=== PATIENT | female | born 1995 | race Caucasian/White ===

== ENCOUNTER 2018-11-01 19:30 | Emergency (ER) | payer OTHER ==
[2018-11-01] MEDS ORDERED: Albuterol/Ipratropium 3.0-0.5 MG/3 ML Neb Soln NEB ONE (19:55)
--- NOTE | 2018-11-01 20:01 | EDM.PDOC ---
ED HPI GENERAL MEDICAL PROBLEM - General Chief Complaint: Chest Pain Stated Complaint: SHORTNESS OF BREATH Time Seen by Provider: 11/01/18 19:52 Source of Information: Reports: Patient History Limitations: Reports: No Limitations - History of Present Illness INITIAL COMMENTS - FREE TEXT/NARRATIVE: Patient is a 23-year-old female who presents to emergency department this evening with a complaint of shortness of breath and chest pain. Patient states that early this morning she had some shortness of breath and as the day progressed, she developed chest pain. Chest pain described as constant, on right side of chest, and pressure. Patient states she had similar symptoms with anxiety and asthma in past. Patient denies any early cardiac family history. Patient denies fever, nausea, vomiting, diarrhea, abdominal pain, lower extremity edema, history of blood clots, or any trauma. Onset: Today Duration: Hour(s): Location: Reports: Chest Quality: Reports: Pressure Severity: Mild Improves with: Reports: None Worsens with: Reports: Breathing Context: Denies: Activity, Exercise, Lifting, Sick Contact, Trauma Associated Symptoms: Reports: No Other Symptoms, Shortness of Breath. Denies: Cough, cough w sputum, Fever/Chills - Related Data Allergies Allergy/AdvReac Type Severity Reaction Status Date / Time Penicillins Allergy Rash Verified 03/10/15 20:53 Home Meds: Home Meds Ibuprofen 800 mg PO DAILY PRN 05/01/14 [History] Citalopram [Citalopram HBr] 20 mg PO DAILY 11/01/18 [History] Glycopyrrolate [Robinul] 1 mg PO DAILY 11/01/18 [History] Norgestimate-Ethinyl Estradiol [[place] 28 Tablet] 1 tab PO DAILY 11/01/18 [ History] Oseltamivir [Tamiflu] 75 mg PO DAILY 11/01/18 [History] ED ROS GENERAL - Review of Systems Review Of Systems: ROS reveals no pertinent complaints other than HPI. Constitutional: Reports: No Symptoms HEENT: Reports: No Symptoms Respiratory: Reports: Shortness of Breath Cardiovascular: Reports: Chest Pain Endocrine: Reports: No Symptoms GI/Abdominal: Reports: No Symptoms : Reports: No Symptoms Musculoskeletal: Reports: No Symptoms Skin: Reports: No Symptoms Neurological: Reports: No Symptoms Psychiatric: Reports: No Symptoms Hematologic/Lymphatic: Reports: No Symptoms Immunologic: Reports: No Symptoms ED EXAM, GENERAL - Physical Exam Exam: See Below Exam Limited By: No Limitations General Appearance: Alert, WD/WN, Anxious Nose: Normal Inspection, Normal Mucosa, No Blood Throat/Mouth: Normal Inspection, Normal Oropharynx, No Airway Compromise Head: Atraumatic, Normocephalic Neck: Normal Inspection, Supple, Non-Tender, Full Range of Motion Respiratory/Chest: No Respiratory Distress, Lungs Clear, Normal Breath Sounds, No Accessory Muscle Use Cardiovascular: Normal Peripheral Pulses, Regular Rate, Rhythm, No Murmur, No Rub GI/Abdominal: Normal Bowel Sounds, Soft, Non-Tender, No Organomegaly, No Distention, No Abnormal Bruit, No Mass Back Exam: Normal Inspection. No: CVA Tenderness (L), CVA Tenderness (R) Extremities: Normal Inspection, Non-Tender, No Pedal Edema Neurological: Alert, Oriented, Normal Cognition Psychiatric: Normal Affect, Anxious Skin Exam: Warm, Dry, Intact, Normal Color, No Rash Lymphatic: No Adenopathy EKG INTERPRETATION EKG Date: 11/01/18 Time: 20:10 Rhythm: NSR Rate (Beats/Min): 72 [place]: Normal P-Wave: Present QRS: Normal ST-T: Normal QT: Normal Comparison: NA - No Prior EKG Course - Vital Signs Last Recorded V/S: Last Vital Signs Temp 97 F 11/01/18 20:47 Pulse 88 11/01/18 20:47 Resp 18 11/01/18 20:47 BP 114/64 11/01/18 20:47 Pulse Ox 94 L 11/01/18 20:47 - Orders/Labs/Meds Orders: Active Orders 24 hr Category Date Time Status EKG Documentation Completion [RC] ASDIRECTED Care 11/01/18 19:54 Ordered RT Aerosol Therapy [RC] ASDIRECTED Care 11/01/18 19:55 Ordered EKG 12 Lead [EK] Routine Ther 11/01/18 19:53 Ordered Labs: Laboratory Tests 11/01/18 11/01/18 11/01/18 Range/Units 20:11 20:25 20:25 WBC 8.35 (5.00-10.00) 10^3/uL RBC 4.47 (3.80-5.50) 10^6/uL Hgb 13.9 (12.0-16.0) g/dL Hct 40.1 (37.0-47.0) % MCV 89.7 (82.0-92.0) fL MCH 31.1 H (27.0-31.0) pg MCHC 34.7 (32.0-36.0) g/dL RDW 11.7 (11.5-14.5) % Plt Count 224 (150-400) 10^3/uL MPV 10.4 (7.4-10.4) fL Immature Gran % (Auto) 0.0 (0.0-5.0) % Neut % (Auto) 55.8 (50.0-70.0) % Lymph % (Auto) 37.4 (20.0-40.0) % [place] % (Auto) 5.6 (2.0-8.0) % Eos % (Auto) 0.8 L (1.0-3.0) % Baso % (Auto) 0.4 (0.0-1.0) % Immature Gran # (Auto) 0.00 (0.00-0.50) 10^3/uL Neut # (Auto) 4.66 (2.50-7.00) 10^3/uL Lymph # (Auto) 3.12 (1.00-4.00) 10^3/uL [place] # (Auto) 0.47 (0.10-0.80) 10^3/uL Eos # (Auto) 0.07 L (0.10-0.30) 10^3/uL Baso # (Auto) 0.03 (0.00-0.10) 10^3/uL D-Dimer, Quantitative 129 (<400) ng/mL Sodium (136-145) mmol/L Potassium (3.3-5.3) mmol/L Chloride (98-115) mmol/L Carbon Dioxide (21.0-32.0) mmol/L Anion Gap (5-15) mmol/L BUN (6-25) mg/dL Creatinine (0.51-1.17) mg/dL Est Cr Clr Drug Dosing Estimated GFR (MDRD) mL/min Glucose (75 - 99) mg/dL Calcium (8.7-10.3) mg/dL Total Bilirubin (0.2-1.0) mg/dL AST (15-37) U/L ALT (12-78) U/L Alkaline Phosphatase (46-116) IU/L Total Protein (6.4-8.2) g/dL Albumin (3.00-4.80) g/dL Urine HCG, Qual Negative (NEGATIVE) 11/01/18 Range/Units 20:25 WBC (5.00-10.00) 10^3/uL RBC (3.80-5.50) 10^6/uL Hgb (12.0-16.0) g/dL Hct (37.0-47.0) % MCV (82.0-92.0) fL MCH (27.0-31.0) pg MCHC (32.0-36.0) g/dL RDW (11.5-14.5) % Plt Count (150-400) 10^3/uL MPV (7.4-10.4) fL Immature Gran % (Auto) (0.0-5.0) % Neut % (Auto) (50.0-70.0) % Lymph % (Auto) (20.0-40.0) % [place] % (Auto) (2.0-8.0) % Eos % (Auto) (1.0-3.0) % Baso % (Auto) (0.0-1.0) % Immature Gran # (Auto) (0.00-0.50) 10^3/uL Neut # (Auto) (2.50-7.00) 10^3/uL Lymph # (Auto) (1.00-4.00) 10^3/uL [place] # (Auto) (0.10-0.80) 10^3/uL Eos # (Auto) (0.10-0.30) 10^3/uL Baso # (Auto) (0.00-0.10) 10^3/uL D-Dimer, Quantitative (<400) ng/mL Sodium 154 H (136-145) mmol/L Potassium 4.0 (3.3-5.3) mmol/L Chloride 101 (98-115) mmol/L Carbon Dioxide 25.9 (21.0-32.0) mmol/L Anion Gap 31.1 H (5-15) mmol/L BUN 10 (6-25) mg/dL Creatinine 0.84 (0.51-1.17) mg/dL Est Cr Clr Drug Dosing TNP Estimated GFR (MDRD) > 60 mL/min Glucose 121 H (75 - 99) mg/dL Calcium 8.8 (8.7-10.3) mg/dL Total Bilirubin 0.5 (0.2-1.0) mg/dL AST 13 L (15-37) U/L ALT 18 (12-78) U/L Alkaline Phosphatase 64 (46-116) IU/L Total Protein 7.0 (6.4-8.2) g/dL Albumin 3.76 (3.00-4.80) g/dL Urine HCG, Qual (NEGATIVE) Meds: Medications Discontinued Medications Generic Name Dose Route Start Last Admin Trade Name Freq PRN Reason Stop Dose Admin Albuterol/Ipratropium 3 ml 11/01/18 19:55 11/01/18 20:13 Duoneb 3.0-0.5 Mg/3 Ml NEB 11/01/18 19:56 3 ml ONETIME ONE Administration Lorazepam 0.5 mg 11/01/18 20:25 11/01/18 20:31 Ativan PO 11/01/18 20:26 0.5 mg ONETIME ONE Administration - Radiology Interpretation Free Text/Narrative:: Chest x-ray shows no acute cardiopulmonary process - Re-Assessments/Exams Free Text/Narrative Re-Assessment/Exam: 11/01/18 21:06 Patient afebrile, vital signs stable, pain and anxiety somewhat relieved, appears nontoxic. Mother and at bedside. Patient will follow-up with PCP Departure - Departure Time of Disposition: 21:09 Disposition: Home, Self-Care 01 Condition: Good Clinical Impression: Nonspecific chest pain, Anxiety and depression - Discharge Information Instructions: Generalized Anxiety Disorder, Adult, Nonspecific Chest Pain, Easy -to-Read, Shortness of Breath, Adult, [id number] Referrals: Samantha Stafford [employer] [Primary Care Provider] - Forms: ED Department Discharge Additional Instructions: Follow-up at [facility] in 1-2 days. Return to emergency department sooner if symptoms continue or worsen. - My Orders Last 24 Hours: My Active Orders 11/01/18 19:53 EKG 12 Lead [EK] Routine 11/01/18 19:54 EKG Documentation Completion [RC] ASDIRECTED 11/01/18 19:55 RT Aerosol Therapy [RC] ASDIRECTED - Assessment/Plan Last 24 Hours: My Active Orders 11/01/18 19:53 EKG 12 Lead [EK] Routine 11/01/18 19:54 EKG Documentation Completion [RC] ASDIRECTED 11/01/18 19:55 RT Aerosol Therapy [RC] ASDIRECTED Assessment:: Anxiety Plan: Follow-up with PCP
[2018-11-01] MEDS ORDERED: LORazepam 0.5 MG Tab PO ONE ×2 (20:25→21:11)
[2018-11-01 20:49] VITALS: BP 114/64
[2018-11-01 20:53] LABS: ANION GAP 31.1 mmol/L (5-15); CHLORIDE,CL 101 mmol/L (98-115); SODIUM,NA 154 mmol/L (136-145)
--- NOTE | 2018-11-01 20:53 | CR ---
[id number] RAD/RAD Chest PA And Lateral EXAM: RAD Chest PA And Lateral INDICATION: CHEST PAIN COMPARISON: None. DISCUSSION: Cardiomediastinal silhouette is normal in size and contour. No infiltrate, effusion, pneumothorax, or edema. IMPRESSION: No acute cardiopulmonary abnormality. Praveen Bucio DO 11/01/18 240 Thank you for allowing us to participate in the care of your patient.
== END 2018-11-01 21:30 | disposition home or self-care (01) ==
LOC: KA.ED 19:30
DX: R07.9 Chest pain, unspecified (principal); F41.9 Anxiety disorder, unspecified; F32.9 Major depressive disorder, single episode, unspecified; Z79.899 Other long term (current) drug therapy
CPT/HCPCS: 36415; 71046; 80053; 81025; 85025; 85379; 93005; 99284; 99285-25; A9270-GY; J7620-GY

== ENCOUNTER 2024-07-25 10:31 | Inpatient (IN) | payer OTHER ==
[2024-07-25 10:58] LABS: BASOPHILS ABSOLUTE AUTO 0.05 10^3/uL (0.00-0.10); BASOPHILS PERCENT AUTO 0.3 % (0.0-1.0); EOSINOPHILS ABSOLUTE AUTO 0.08 10^3/uL (0.10-0.30); EOSINOPHILS PERCENT AUTO 0.5 % (1.0-3.0); HEMATOCRIT 42.4 % (37.0-47.0); HEMOGLOBIN 14.2 g/dL (12.0-16.0); IMMATURE GRAN ABSOLUTE AUTO 0.03 10^3/uL (0.00-0.50); IMMATURE GRAN PERCENT AUTO 0.2 % (0.0-5.0); LYMPHOCYTES ABSOLUTE AUTO 2.18 10^3/uL (1.00-4.00); LYMPHOCYTES PERCENT AUTO 12.6 % (20.0-40.0); MEAN CORPUSCULAR HEMOGLOBIN 28.3 pg (27.0-31.0); MEAN CORPUSCULAR HGB CONC 33.5 g/dL (32.0-36.0); MEAN CORPUSCULAR VOLUME 84.6 fL (82.0-92.0); MEAN PLATELET VOLUME 9.9 fL (7.4-10.4); MONOCYTES PERCENT AUTO 4.6 % (2.0-8.0); NEUTROPHILS ABSOLUTE AUTO 14.23 10^3/uL (2.50-7.00); NEUTROPHILS PERCENT AUTO 81.8 % (50.0-70.0); PLATELET COUNT,PLT 353 10^3/uL (150-400); RED BLOOD CELL COUNT 5.01 10^6/uL (3.80-5.50); RED CELL DISTRIBUTION WIDTH 12.4 % (11.5-14.5); WHITE BLOOD CELL COUNT,WBC 17.37 10^3/uL (5.00-10.00)
[2024-07-25] MEDS: guaiFENesin/Dextromethorphan 100-10 MG/5 ML Soln 5 ML Cup PO ONE (11:11)
[2024-07-25 11:13] LABS: ALBUMIN 3.81 g/dL (3.40-5.00); ANION GAP 14.9 mmol/L (5-15); CALCIUM 8.4 mg/dL (8.7-10.3); CARBON DIOXIDE,CO2 25.3 mmol/L (21.0-32.0); CREATININE 0.73 mg/dL (0.51-1.17); EST CRCL DRUG DOSING (CG) 100.48 mL/min; POTASSIUM,K 4.2 mmol/L (3.5-5.1); PROTEIN TOTAL,TP 7.8 g/dL (6.4-8.2)
[2024-07-25 11:14] LABS: BILIRUBIN TOTAL 1.4 mg/dL (0.2-1.0)
[2024-07-25 11:17] LABS: LACTIC ACID 1.1 mmol/L (0.4-2.0)
[2024-07-25 12:06] LABS: INFLUENZA A NAA NEGATIVE (NEGATIVE); INFLUENZA B NAA NEGATIVE (NEGATIVE)
[2024-07-25 12:08] LABS: CORONAVIRUS COVID-19 NAA NEGATIVE (NEGATIVE)
[2024-07-25] MEDS: Albuterol 0.083% 2.5 MG/3 ML Neb Soln NEB ONE (12:12)
[2024-07-25] MEDS: Cefepime 2 GM Vial IVPUSH ONE (12:14)
[2024-07-25] MEDS ORDERED: Albuterol/Ipratropium 3.0-0.5 MG/3 ML Neb Soln NEB PRN (13:23)
[2024-07-25] MEDS: cefTRIAXone 2 GM Vial IVPUSH SCH (13:58)
[2024-07-25] MEDS: Azithromycin 500 MG in Sodium Chloride 0.9% 250 ML IV SCH (13:58)
[2024-07-25] MEDS: Bisacodyl 5 MG Tab PO PRN (13:58)
[2024-07-25] MEDS: methylPREDNISolone Sodium Succinate 40 MG/1 ML SDV IVPUSH SCH (13:58)
[2024-07-25] MEDS ORDERED: Sodium Chloride 0.9% 50 ML IV SCH (14:30)
[2024-07-25] MEDS: Ondansetron 4 MG/2 ML SDV IVPUSH PRN (14:45)
[2024-07-25] MEDS: Sodium Chloride 0.9% 100 ML IV SCH (15:08)
[2024-07-25] MEDS: Iopamidol 755 Mg/ML 100 ML Bottle IV ONE (15:08)
[2024-07-25] MEDS: Albuterol/Ipratropium 3.0-0.5 MG/3 ML Neb Soln NEB SCH (16:26)
[2024-07-25] MEDS: diphenhydrAMINE 25 MG Cap PO PRN (16:46)
[2024-07-25] MEDS: Acetaminophen 325 MG Tab PO PRN (20:31)
[2024-07-26] MEDS: Codeine/guaiFENesin 10-100 MG/5 ML Syrup 5 ML Cup PO PRN (04:05)
[2024-07-26 07:51] LABS: HEMATOCRIT 40.6 % (37.0-47.0); HEMOGLOBIN 13.5 g/dL (12.0-16.0); MEAN CORPUSCULAR HEMOGLOBIN 28.3 pg (27.0-31.0); MEAN CORPUSCULAR HGB CONC 33.3 g/dL (32.0-36.0); MEAN CORPUSCULAR VOLUME 85.1 fL (82.0-92.0); MEAN PLATELET VOLUME 10.1 fL (7.4-10.4); PLATELET COUNT,PLT 334 10^3/uL (150-400); RED BLOOD CELL COUNT 4.77 10^6/uL (3.80-5.50); RED CELL DISTRIBUTION WIDTH 12.6 % (11.5-14.5); WHITE BLOOD CELL COUNT,WBC 11.79 10^3/uL (5.00-10.00)
[2024-07-26] MEDS: FLUoxetine 10 MG Cap PO SCH (08:01)
[2024-07-26] MEDS: Enoxaparin 40 MG/0.4 ML Syringe SUBCUT SCH (08:01)
[2024-07-26 08:14] LABS: ALBUMIN 3.47 g/dL (3.40-5.00); ANION GAP 14.6 mmol/L (5-15); BILIRUBIN TOTAL 0.9 mg/dL (0.2-1.0); CALCIUM 8.8 mg/dL (8.7-10.3); CARBON DIOXIDE,CO2 25.4 mmol/L (21.0-32.0); CREATININE 0.54 mg/dL (0.51-1.17); EST CRCL DRUG DOSING (CG) 135.83 mL/min; MAGNESIUM 2.2 mg/dL (1.8-2.4); PROTEIN TOTAL,TP 7.7 g/dL (6.4-8.2)
[2024-07-26] MEDS: Sodium Chloride 0.9% 1,000 ML IV ONE (10:22)
[2024-07-26] MEDS: Menthol Lozenge PO PRN (10:22)
[2024-07-26] MEDS: Sodium Chloride 0.9% 10 ML Syringe FLUSH PRN (21:30)
[2024-07-26] MEDS: Levalbuterol HCl 0.63 MG/3 ML Neb NEB PRN (22:00)
[2024-07-26] MEDS: Benzonatate 100 MG Cap PO SCH (23:54)
[2024-07-27] MEDS: Benzonatate 100 MG Cap ONE (00:49)
[2024-07-27 07:25] LABS: HEMATOCRIT 40.7 % (37.0-47.0); HEMOGLOBIN 13.4 g/dL (12.0-16.0); MEAN CORPUSCULAR HEMOGLOBIN 28.5 pg (27.0-31.0); MEAN CORPUSCULAR HGB CONC 32.9 g/dL (32.0-36.0); MEAN CORPUSCULAR VOLUME 86.4 fL (82.0-92.0); MEAN PLATELET VOLUME 10.2 fL (7.4-10.4); PLATELET COUNT,PLT 343 10^3/uL (150-400); RED BLOOD CELL COUNT 4.71 10^6/uL (3.80-5.50); RED CELL DISTRIBUTION WIDTH 12.8 % (11.5-14.5); WHITE BLOOD CELL COUNT,WBC 18.54 10^3/uL (5.00-10.00)
[2024-07-27 07:47] LABS: ALBUMIN 3.31 g/dL (3.40-5.00); ANION GAP 13.6 mmol/L (5-15); BILIRUBIN TOTAL 0.6 mg/dL (0.2-1.0); CALCIUM 8.4 mg/dL (8.7-10.3); CARBON DIOXIDE,CO2 27.6 mmol/L (21.0-32.0); CREATININE 0.59 mg/dL (0.51-1.17); EST CRCL DRUG DOSING (CG) 124.32 mL/min; POTASSIUM,K 4.2 mmol/L (3.5-5.1); PROTEIN TOTAL,TP 7.2 g/dL (6.4-8.2)
[2024-07-27] MEDS ORDERED: Metoclopramide 10 MG/2 ML SDV IVPUSH PRN (10:15)
[2024-07-27] MEDS ORDERED: Ketorolac 30 MG/ML SDV IVPUSH PRN (10:16)
[2024-07-27] MEDS ORDERED: Dextrose 5%-0.9% NaCl with KCl 1,000 ML IV SCH (10:30)
[2024-07-27] MEDS: Pantoprazole 40 MG Vial IVPUSH SCH (13:20)
[2024-07-28 07:11] LABS: HEMATOCRIT 41.5 % (37.0-47.0); HEMOGLOBIN 13.5 g/dL (12.0-16.0); IMMATURE GRAN ABSOLUTE AUTO 0.03 10^3/uL (0.00-0.50); IMMATURE GRAN PERCENT AUTO 0.3 % (0.0-5.0); LYMPHOCYTES ABSOLUTE AUTO 1.11 10^3/uL (1.00-4.00); LYMPHOCYTES PERCENT AUTO 10.1 % (20.0-40.0); MEAN CORPUSCULAR HEMOGLOBIN 28.4 pg (27.0-31.0); MEAN CORPUSCULAR HGB CONC 32.5 g/dL (32.0-36.0); MEAN CORPUSCULAR VOLUME 87.4 fL (82.0-92.0); MONOCYTES ABSOLUTE AUTO 0.17 10^3/uL (0.10-0.80); MONOCYTES PERCENT AUTO 1.5 % (2.0-8.0); NEUTROPHILS ABSOLUTE AUTO 9.72 10^3/uL (2.50-7.00); NEUTROPHILS PERCENT AUTO 88.1 % (50.0-70.0); PLATELET COUNT,PLT 335 10^3/uL (150-400); RED BLOOD CELL COUNT 4.75 10^6/uL (3.80-5.50); RED CELL DISTRIBUTION WIDTH 12.8 % (11.5-14.5); WHITE BLOOD CELL COUNT,WBC 11.03 10^3/uL (5.00-10.00)
[2024-07-28] MEDS: Doxycycline Monohydrate 100 MG Cap PO SCH (11:41)
[2024-07-28] MEDS: guaiFENesin 600 MG Tab.ER PO SCH (11:41)
[2024-07-28] MEDS: Cefdinir 300 MG Cap PO SCH (12:14)
[2024-07-28] MEDS: predniSONE 20 MG Tab PO SCH (12:16)
[2024-07-28] MEDS: Cefdinir 300 MG Cap ONE (12:23)
[2024-07-29 07:17] LABS: EOSINOPHILS ABSOLUTE AUTO 0.03 10^3/uL (0.10-0.30); EOSINOPHILS PERCENT AUTO 0.2 % (1.0-3.0); HEMATOCRIT 44.6 % (37.0-47.0); HEMOGLOBIN 14.4 g/dL (12.0-16.0); IMMATURE GRAN ABSOLUTE AUTO 0.03 10^3/uL (0.00-0.50); IMMATURE GRAN PERCENT AUTO 0.2 % (0.0-5.0); LYMPHOCYTES ABSOLUTE AUTO 3.73 10^3/uL (1.00-4.00); LYMPHOCYTES PERCENT AUTO 29.2 % (20.0-40.0); MEAN CORPUSCULAR HGB CONC 32.3 g/dL (32.0-36.0); MEAN CORPUSCULAR VOLUME 86.8 fL (82.0-92.0); MONOCYTES ABSOLUTE AUTO 0.83 10^3/uL (0.10-0.80); MONOCYTES PERCENT AUTO 6.5 % (2.0-8.0); NEUTROPHILS ABSOLUTE AUTO 8.17 10^3/uL (2.50-7.00); NEUTROPHILS PERCENT AUTO 63.9 % (50.0-70.0); PLATELET COUNT,PLT 330 10^3/uL (150-400); RED BLOOD CELL COUNT 5.14 10^6/uL (3.80-5.50); RED CELL DISTRIBUTION WIDTH 12.7 % (11.5-14.5); WHITE BLOOD CELL COUNT,WBC 12.79 10^3/uL (5.00-10.00)
[2024-07-29 10:27] VITALS: BP 123/79; PULSE 106
== END 2024-07-29 10:40 | disposition home or self-care (01) | DRG 196 ==
LOC: KA.ED 10:31 → KA.MS 12:07 → UNDOADMIN 12:07 → KA.MS 13:29
PROVIDERS: ADMIT Internal Medicine; ATTEND Family Medicine
DX: J18.9 Pneumonia, unspecified organism (principal); D72.828 Other elevated white blood cell count; J45.909 Unspecified asthma, uncomplicated; J84.9 Interstitial pulmonary disease, unspecified; J96.01 Acute respiratory failure with hypoxia; Z88.8 Allergy status to other drugs, medicaments and biological substances; J45.21 Mild intermittent asthma with (acute) exacerbation; F41.9 Anxiety disorder, unspecified; D72.829 Elevated white blood cell count, unspecified; K21.9 Gastro-esophageal reflux disease without esophagitis; H54.7 Unspecified visual loss; E66.9 Obesity, unspecified; F32.A Depression, unspecified; R00.0 Tachycardia, unspecified; Z88.0 Allergy status to penicillin; Z79.51 Long term (current) use of inhaled steroids; Z79.899 Other long term (current) drug therapy; Z68.33 Body mass index [BMI] 33.0-33.9, adult; Z98.890 Other specified postprocedural states
CPT/HCPCS: 0240U; 36415; 71045; 71275; 80053; 83605; 83735; 85025; 85027; 87040; 94640; 99223-GT; 99232-GT; 99233-GT; 99239-GT; 99284; 99285; A9270-GY; J0456; J0692; J0696; J1650; J2405; J2919; J3490; J7030; J7050; J7512; J7613-GY; J7620-GY; Q3014; Q9967